=== PATIENT | female | born 1995 | race Hispanic/Latino ===

== ENCOUNTER 2024-03-27 01:12 | Emergency (ER) | END 2024-03-27 01:16 | disposition left against medical advice (07) | LOC: ER 01:16 | DX: R10.10 Upper abdominal pain, unspecified (principal) ==

== ENCOUNTER 2024-04-10 15:45 | Emergency (ER) | payer BC ==
[~2024-04-10] VITALS: Ht 160 cm; Wt 98.9 kg
[2024-04-10 16:29] LABS: BASOPHILS % 0.4 % (0.0-1.0); EOSINOPHILS % 0.4 % (0.0-6.0); HEMATOCRIT 39.6 % (34.2-44.1); HEMOGLOBIN 12.1 g/dL (12.0-16.0); LYMPHOCYTES # (AUTO) 2.6 (1.0-3.2); LYMPHOCYTES % 22.8 % (18.0-39.1); MEAN CORPUSCULAR HEMOGLOBIN 25.1 pg (28-32); MEAN CORPUSCULAR HGB CONC 30.6 g/dL (31-35); MEAN CORPUSCULAR VOLUME 82.2 fL (81-99); MONOCYTES # (AUTO) 0.6 (0.2-0.8); MONOCYTES % 5.5 % (4.4-11.3); NEUTROPHILS # (AUTO) 7.9 (2.1-6.9); NEUTROPHILS % 70.5 % (38.7-80.0); PLATELET COUNT 384 x10e3/uL (140-360); RED BLOOD COUNT 4.82 x10e6/uL (3.6-5.1); RED CELL DISTRIBUTION WIDTH 15.6 % (11.7-14.4); WHITE BLOOD COUNT 11.16 x10e3/uL (4.8-10.8)
[2024-04-10 16:42] LABS: INR 0.91; PROTHROMBIN TIME 12.7 seconds (11.9-14.5)
[2024-04-10 16:43] LABS: PARTIAL THROMBOPLASTIN TIME 32.7 seconds (23.8-35.5)
[2024-04-10 16:51] LABS: ALANINE AMINOTRANSFERASE 47 IU/L (0-55); ALBUMIN/GLOBULIN RATIO 1.1 (0.8-2.0); ALKALINE PHOSPHATASE 77 IU/L (40-150); ANION GAP 12.2 mmol/L (8-16); BILIRUBIN,TOTAL 0.3 mg/dL (0.2-1.2); BLOOD UREA NITROGEN 18 mg/dL (7-26); BUN/CREATININE RATIO 19 (6-25); CALCIUM 9.2 mg/dL (8.4-10.2); CARBON DIOXIDE 24 mmol/L (22-29); CHLORIDE 106 mmol/L (98-107); CREATINE KINASE 51 IU/L (29-168); CREATININE, SERUM 0.97 mg/dL (0.57-1.11); EST GLOMERULAR FILTRATION RATE 81 ML/MIN (>=60); GLUCOSE 105 mg/dL (74-118); LIPASE 28 U/L (8-78); MAGNESIUM 1.8 MG/DL (1.3-2.1); POTASSIUM 4.2 mmol/L (3.5-5.1); SODIUM 138 mmol/L (136-145); TOTAL PROTEIN 7.6 g/dL (6.5-8.1)
[2024-04-10 16:57] LABS: TROPONIN I 0.006 ng/mL (0-0.300)
[2024-04-10] MEDS ORDERED: IOPAMIDOL 370 MG/ML 100 ML INFUS..BTL INJ ONE (17:05)
[2024-04-10] MEDS: ONDANSETRON HCL INJ 2MG/ML 2ML 2 MG/ML VIAL IV STA (17:37)
[2024-04-10] MEDS: SODIUM CHLORIDE 0.9% 1000ML 1,000 ML IV STA (17:37)
[2024-04-10] MEDS: Morphine 4mg INJECTION 4 MG/ML INJ IV STA (17:45)
[2024-04-10 19:12] VITALS: PULSE 64; RESP 19; TEMP 98.3
[2024-04-10] MEDS ORDERED: DICYCLOMINE HCL20 MG PO (19:17)
[2024-04-10] MEDS ORDERED: ONDANSETRON ODT4 MG SL (19:17)
[2024-04-10] MEDS ORDERED: PANTOPRAZOLE SO40 MG PO (19:17)
[2024-04-10 19:25] VITALS: BP 130/81; PULSE 64; RESP 19; TEMP 98.3; O2SAT 100
== END 2024-04-10 19:36 | disposition home or self-care (01) ==
LOC: ER 15:52
DX: R10.13 Epigastric pain (principal); K80.20 Calculus of gallbladder without cholecystitis without obstruction; K80.50 Calculus of bile duct without cholangitis or cholecystitis without obstruction; K76.0 Fatty (change of) liver, not elsewhere classified
CPT/HCPCS: 36415; 74177; 76705; 80053; 82550; 83690; 83735; 84484; 84702; 85025; 85610; 85730; 99284; J2405; J2470; J7030; Q9967; J2270